=== PATIENT | male | born 1980 | race Caucasian/White ===

== ENCOUNTER → 2017-03-23 | Outpatient (CLI) | payer OTHER ==
[2017-03-23 15:52] LABS: HEMOGLOBIN 15.6 g/dL (14.1-18.0); LYMPH # 1.8 K/mm3 (0.7-4.5); LYMPH % 38.7 % (10-50)
[2017-03-23 18:36] LABS: BUN 12 mg/dL (7-18)
[2017-03-23 18:37] LABS: GFR (ESTIMATED) 109 ML/MIN (>60)
[2017-03-25 07:42] LABS: HBsAg Screen Negative (Negative); Hep A Ab, IgM Negative (Negative); Hep B Core Ab, IgM Negative (Negative); Hep C Virus Ab <0.1 (0.0-0.9); Testosterone 232 ng/dL (264-916)
== END ==
LOC: LAB 15:35
PROVIDERS: Emergency Medicine
DX: R53.83 Other fatigue (principal)

== ENCOUNTER → 2017-04-04 | Outpatient (CLI) | payer OTHER ==
[2017-04-10 10:36] LABS: Testosterone, Total, LC/MS 344.9 ng/dL (264.0-916.0)
== END ==
LOC: LAB 17:07
PROVIDERS: Emergency Medicine
DX: E34.9 Endocrine disorder, unspecified (principal)